=== PATIENT | female | born 1970 | race Caucasian/White ===

== ENCOUNTER → 2017-06-18 | Outpatient (REF) ==
[2017-06-18 09:04] LABS: MEAN CORPUSCULAR HEMOGLOBIN 31.7 pg (27.0-33.0); MEAN CORPUSCULAR HGB CONC 34.4 g/dl (32.0-36.5); MEAN CORPUSCULAR VOLUME 92.1 fl (80.0-96.0); RED CELL DISTRIBUTION WIDTH 11.9 % (11.5-14.5); WHITE BLOOD COUNT 5.1 K/mm3 (4.0-10.0)
[2017-06-18 09:42] LABS: ANION GAP 7 MEQ/L (8-16); BLOOD UREA NITROGEN 19 MG/DL (7-18); CALCIUM LEVEL 8.6 MG/DL (8.5-10.1); CARBON DIOXIDE LEVEL 29 MEQ/L (21-32); CHLORIDE LEVEL 105 MEQ/L (98-107); CHOLESTEROL LEVEL 168 MG/DL (<200); CREATININE FOR GFR 0.61 MG/DL (0.55-1.02); GLOMERULAR FILTRATION RATE > 60.0 (>58); GLUCOSE, FASTING 92 MG/DL (70-105); POTASSIUM SERUM 3.9 MEQ/L (3.5-5.1); SODIUM LEVEL 141 MEQ/L (136-145); TRIGLYCERIDES LEVEL 40 MG/DL (<150)
--- NOTE | 2017-06-18 10:19 | REP ---
Chest x-ray PA and lateral: 06/18/2017. Comparison: 05/06/2016, 06/10/2015. 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 Two views were performed. The lung spicer are well inflated and without infiltrate, effusion, atelectasis or mass. The heart, mediastinal and hilar contours are normal. The airway is intact. Bony thorax shows no acute compression deformity of focal lesion. There is no free air under the diaphragm. Impression: 1. No acute cardiopulmonary disease, stable chest. Signed by Jarrett Koehler MD 06/18/2017 07:04 P
--- NOTE | 2017-06-18 13:22 | REPMRS ---
Patient History The patient states she has not had a clinical breast exam in over a year. No known family history of cancer. Digital Mammo Screening Bilat: June 18, 2017 - Exam #: [id number] Bilateral CC and MLO view(s) were taken. Technologist: Carly Monroe, Technologist Prior study comparison: June 13, 2016, bilateral digital mammo screening bilat performed at [facility]. June 12, 2015, bilateral digital mammo screening bilat performed at [facility]. FINDINGS: The breast tissue is heterogeneously dense. This may lower the sensitivity of mammography. There has been no change in the appearance of the mammogram from the prior studies. There is a moderate amount of residual fibroglandular tissue which is fairly symmetric. There is no interval development of dominant mass, architectural distortion, or clustered microcalcification typical of malignancy. No significant changes when compared with prior studies. ASSESSMENT: BI-RADS/ACR category 1 mammogram. Negative. Recommendation Routine screening mammogram in 1 year (for women over age 40). This mammogram was interpreted with the aid of an FDA-approved computer-aided dectection system. A. Negative x-ray reports should not delay biopsy if a dominant or clinically suspicious mass is present. B. Four to eight percent of cancers are not identified by mammography. C. Adenosis and dense breast may obscure an underlying neoplasm. Electronically Signed By: Jarrett Koehler MD 06/18/17 0218
--- NOTE | 2017-06-19 17:59 | ECGEPIP ---
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 Normal Electronically Signed On 06-19-2017 17:59:04 EDT by Eliseo Toro
== END ==
LOC: M LAB 08:27
PROVIDERS: ATTEND Family Medicine
DX: Z00.8 Encounter for other general examination (principal)

== ENCOUNTER → 2017-10-13 | Outpatient (CLI) | payer BC ==
[2017-10-13 15:35] LABS: BASO % 0.3 % (0.0-1.0); EOS # 0.3 10^3/uL (0.0-0.50); EOS % 4.2 % (0.0-3.0); IMMATURE GRANULOCYTE % 0.3 % (0-0); LYMPH # 1.8 10^3/uL (1.5-4.5); LYMPH % 26.4 % (24.0-44.0); MEAN CORPUSCULAR HEMOGLOBIN 31.3 pg (27.0-33.0); MEAN CORPUSCULAR HGB CONC 33.9 g/dl (32.0-36.5); MEAN CORPUSCULAR VOLUME 92.2 fl (80.0-96.0); MONO # 0.5 10^3/uL (0.0-0.8); MONO % 6.9 % (0.0-5.0); NEUTROPHILS # 4.1 10^3/uL (1.8-7.7); NEUTROPHILS % 61.9 % (36.0-66.0); PLATELET COUNT, AUTOMATED 211 10^3/uL (150-450); RED CELL DISTRIBUTION WIDTH 11.9 % (11.5-14.5); WHITE BLOOD COUNT 6.6 10^3/uL (4.0-10.0)
[2017-10-13 15:45] LABS: ALBUMIN 3.9 GM/DL (3.2-5.2); ALBUMIN/GLOBULIN RATIO 1.34 (1.00-1.93); ALKALINE PHOSPHATASE 50 U/L (45-117); ALT/SGPT 31 U/L (12-78); AMYLASE 39 U/L (25-115); ANION GAP 7 MEQ/L (8-16); AST/SGOT 16 U/L (7-37); BILIRUBIN,TOTAL 0.3 MG/DL (0.2-1.0); BLOOD UREA NITROGEN 12 MG/DL (7-18); CALCIUM LEVEL 8.7 MG/DL (8.5-10.1); CARBON DIOXIDE LEVEL 28 MEQ/L (21-32); CHLORIDE LEVEL 105 MEQ/L (98-107); CREATININE FOR GFR 0.71 MG/DL (0.55-1.02); GLOMERULAR FILTRATION RATE > 60.0 (>58); GLUCOSE, FASTING 73 MG/DL (70-105); SODIUM LEVEL 140 MEQ/L (136-145); TOTAL PROTEIN 6.8 GM/DL (6.4-8.2); URIC ACID 3.5 MG/DL (2.6-6.0)
[2017-10-16 00:06] LABS: Lyme Disease IgG/IgM Antibodie <0.91 ISR (0.00-0.90); Lyme Disease IgM Ab Quantitati <0.80 index (0.00-0.79)
== END ==
LOC: M LAB 08:00
DX: R53.83 Other fatigue (principal); M25.50 Pain in unspecified joint; R10.9 Unspecified abdominal pain
CPT/HCPCS: 82150

== ENCOUNTER → 2018-06-25 | Outpatient (REF) ==
[2018-06-25 16:58] LABS: HEMATOCRIT 40.4 % (36.0-47.0); HEMOGLOBIN 13.5 g/dl (12.0-15.5); MEAN CORPUSCULAR HEMOGLOBIN 31.2 pg (27.0-33.0); MEAN CORPUSCULAR HGB CONC 33.4 g/dl (32.0-36.5); MEAN CORPUSCULAR VOLUME 93.3 fl (80.0-96.0); PLATELET COUNT, AUTOMATED 230 10^3/uL (150-450); RED BLOOD COUNT 4.33 10^6/uL (4.00-5.40); WHITE BLOOD COUNT 7.2 10^3/uL (4.0-10.0)
[2018-06-25 17:23] LABS: ANION GAP 8 MEQ/L (8-16); BLOOD UREA NITROGEN 13 MG/DL (7-18); CALCIUM LEVEL 8.9 MG/DL (8.5-10.1); CARBON DIOXIDE LEVEL 27 MEQ/L (21-32); CHLORIDE LEVEL 106 MEQ/L (98-107); CHOLESTEROL LEVEL 190 MG/DL (<200); CHOLESTEROL RISK RATIO 2.261 (<5); CREATININE FOR GFR 0.69 MG/DL (0.55-1.30); GLOMERULAR FILTRATION RATE > 60.0 (>58); GLUCOSE, FASTING 87 MG/DL (70-100); HDL CHOLESTEROL 84 MG/DL (>40); LDL CHOLESTEROL 94.4 MG/DL (<100); NON-HDL-C 106 MG/DL; POTASSIUM SERUM 4.6 MEQ/L (3.5-5.1); SODIUM LEVEL 141 MEQ/L (136-145); TRIGLYCERIDES LEVEL 58 MG/DL (<150)
== END ==
LOC: M LAB 16:24
DX: Z02.1 Encounter for pre-employment examination (principal)

== ENCOUNTER → 2019-01-17 | Outpatient (REF) | payer BC | LOC: M LAB REF 10:31 | PROVIDERS: ATTEND Physician Assistant | DX: N39.0 Urinary tract infection, site not specified (principal) ==

== ENCOUNTER → 2019-01-21 | Outpatient (CLI) | payer BC ==
--- NOTE | 2019-01-21 21:29 | REP ---
Clinical: Trauma/fall. Technique: Neutral and frog lateral views of the right hip. Findings: No acute fracture dislocation. Skeletal structures, joint spaces and surrounding soft tissues appear normal for age. Impression: No acute fracture or dislocation. Electronically Signed by Darryl Roque MD 01/21/2019 09:21 P
--- NOTE | 2019-01-21 21:29 | REP ---
Clinical: Trauma/fall . Technique: AP, lateral, bilateral oblique, and coned-down views. Findings: There appears to be a nonacute compression deformity involving T12 and correlation is recommended. Alignment and lordosis is maintained. The lumbar vertebral bodies including transverse process and spinous processes are intact and normal. There is no evidence for acute lumbar fracture / compression injury or subluxation. No evidence for spondylolysis or spondylolisthesis. No significant degenerative change is noted. Impression: 1. Nonacute compression deformity involving T12 suspected and correlation is recommended. 2. Normal lumbosacral spine radiograph series. Electronically Signed by Darryl Roque MD 01/21/2019 09:20 P
== END ==
LOC: M RAD 17:48
PROVIDERS: ATTEND Nurse Practitioner Family
DX: M25.551 Pain in right hip (principal); M54.5 Low back pain

== ENCOUNTER → 2019-01-27 | Outpatient (CLI) | payer BC ==
--- NOTE | 2019-01-27 11:55 | REP ---
LEFT HIP AP LATERAL: 01/27/2019. COMPARISON: Right hip 01/21/2019. CLINICAL HISTORY: Left hip pain, trauma after a fall. FINDINGS: There is a tiny rim osteophyte in the femoral head and at the acetabular roof. The joint space width is preserved. There is no fracture through the acetabulum, iliac or ischial bones. SI joint grossly intact. Sacral ala and foramina preserved. Some hypertrophic facet changes at L5-S1. Pubic rami and symphysis pubis intact. There is no evidence of fracture or focal lesion. The femoral head neck, trochanters or proximal shaft. IMPRESSION: 1. Negative for fracture about the left hip. Minor degenerative change, age appropriate. Electronically Signed by Jarrett Koehler MD 01/27/2019 09:50 P
== END ==
LOC: M RAD 11:00
PROVIDERS: ATTEND Nurse Practitioner Family
DX: M25.552 Pain in left hip (principal); M16.12 Unilateral primary osteoarthritis, left hip

== ENCOUNTER → 2019-04-01 | Outpatient (CLI) | payer BC ==
--- NOTE | 2019-04-05 09:59 | DEXA ---
AP SPINE L1 - L4 1.300 0.9 1.2 LT FEMUR TOTAL 1.071 0.5 1.0 LT NECK 1.006 -0.2 0.5 RT FEMUR TOTAL 1.048 0.3 0.8 RT NECK 0.984 -0.4 0.4 TOTAL BODY TOTAL OTHER COMMENTS: Normal bone densitometry of the spine and hips. FOLLOW-UP: Recommendation for the next bone density exam: 5 years. NALINI
== END ==
LOC: M WHC 09:11
PROVIDERS: ATTEND Family Medicine
DX: Z13.820 Encounter for screening for osteoporosis (principal)

== ENCOUNTER → 2019-06-27 | Outpatient (REF) | payer BC | LOC: M LAB REF 09:07 | PROVIDERS: ATTEND Physician Assistant | DX: R30.0 Dysuria (principal) ==

== ENCOUNTER → 2019-07-06 | Outpatient (REF) ==
--- NOTE | 2019-07-06 15:58 | REPMRS ---
Patient History The patient states she has not had a clinical breast exam in over a year. No known family history of cancer. 3D TOMOSYNTHESIS WAS PERFORMED. The Sam Carrion lifetime risk for breast cancer is 12.1%. Digital Mammo Screening Bilat: July 06, 2019 - Exam #: [id number] Bilateral CC and MLO view(s) were taken. Technologist: Carly Monroe, Technologist Prior study comparison: June 25, 2018, bilateral digital mammo screening bilat performed at [facility]. June 18, 2017, bilateral digital mammo screening bilat performed at [facility]. FINDINGS: The breast tissue is heterogeneously dense. This may lower the sensitivity of mammography. There has been no change in the appearance of the mammogram from the prior studies. There is a moderate amount of residual fibroglandular tissue which is fairly symmetric. There is no interval development of dominant mass, areas of architectural distortion, or clustered microcalcification typical of malignancy. Assessment: BI-RADS/ACR category 1 mammogram. Negative Mammogram. Recommendation Routine screening mammogram in 1 year (for women over age 40). This mammogram was interpreted with the aid of an FDA-approved computer-aided dectection system. Electronically Signed By: Cuong Leung MD 07/06/19 [id number]
== END ==
LOC: M RAD 14:30
PROVIDERS: ATTEND Family Medicine
DX: Z12.31 Encounter for screening mammogram for malignant neoplasm of breast (principal)

== ENCOUNTER 2019-12-15 13:45 | Outpatient (RCR) | payer OTHER | END 2019-12-17 | LOC: M PT 13:45 | PROVIDERS: ATTEND Orthopaedic Surgery | DX: M77.01 Medial epicondylitis, right elbow (principal) ==

== ENCOUNTER 2020-01-12 11:45 | Outpatient (RCR) | payer OTHER | END 2020-01-15 | LOC: M PT 11:45 | PROVIDERS: ATTEND Orthopaedic Surgery | DX: Z47.89 Encounter for other orthopedic aftercare (principal); M77.01 Medial epicondylitis, right elbow ==

== ENCOUNTER 2020-02-10 09:30 | Outpatient (RCR) | payer OTHER | END 2020-02-15 | LOC: M PT 09:30 | PROVIDERS: ATTEND Orthopaedic Surgery | DX: Z51.89 Encounter for other specified aftercare (principal); M77.01 Medial epicondylitis, right elbow ==

== ENCOUNTER 2020-02-18 10:16 | Outpatient (RCR) | payer OTHER | END 2020-03-16 | LOC: M PT 10:16 | PROVIDERS: ATTEND Orthopaedic Surgery | DX: M77.01 Medial epicondylitis, right elbow (principal) ==

== ENCOUNTER → 2020-05-12 | Outpatient (CLI) | payer BC ==
--- NOTE | 2020-05-12 16:39 | REP ---
REASON: Atraumatic pain. No recent trauma. No priors for comparison. Lumbar spine series, 01/21/2019 showed a T12 compression abnormality. The T12 compression abnormality seen on the prior lumbar spine examination is unchanged. There is disc space narrowing seen at every level. There is anterior lipping at every level. Vertebral body height and alignment is otherwise within normal limits. The pedicles appear to be intact bilaterally. IMPRESSION: Chronic changes, as described above. Electronically Signed by El Lutz DO 05/12/2020 04:40 P
== END ==
LOC: M WUC 13:14
PROVIDERS: ATTEND Physician Assistant
DX: M51.9 Unspecified thoracic, thoracolumbar and lumbosacral intervertebral disc disorder (principal)

== ENCOUNTER → 2020-05-17 | Outpatient (CLI) | payer BC ==
--- NOTE | 2020-05-17 19:14 | REP ---
MRI thoracic spine: 05/17/2020. Indication: Thoracic axial skeletal pain. Technique: Multiplanar short and long TR sequences of the thoracic spine were obtained without IV Gadolinium imaging. Comparison: None. Findings: There is a chronic anterior T12 compression deformity with minimal loss of craniocaudal height. No worrisome marrow signal is present. There is a small focal area of fatty marrow within the T8 vertebral body. No pathologic cord signal is present. There is a small right paracentral T7/T8 disc protrusion without cord compression. Disc dessication is present throughout. Impression: No significant spinal canal or neural foraminal narrowing throughout the thoracic spine. Electronically Signed by Chad Arias DO 05/17/2020 07:05 P
== END ==
LOC: M RAD 16:23
PROVIDERS: ATTEND Family Medicine
DX: M54.14 Radiculopathy, thoracic region (principal)

== ENCOUNTER → 2020-06-07 | Outpatient (CLI) | payer BC ==
[~2020-06-07] MED LIST: AMPH1CAP16 PO; APPL300T4 PO; CALC1TAB42 PO; COLA100C5 PO; HGH PO; HM C500T3 PO; MULT1TAB7 PO; OMEG12002 PO; RIZA10TA2 PO; SERT25TA85 PO; TUMERIC PO; [UNRECOGNIZED DRUG - OTHER]; [UNRECOGNIZED DRUG - OTHER] PO
== END ==
LOC: M LABSMTC 10:08
PROVIDERS: ATTEND Anesthesiology
DX: Z01.818 Encounter for other preprocedural examination (principal); Z11.59 Encounter for screening for other viral diseases; Z20.828 Contact with and (suspected) exposure to other viral communicable diseases
CPT/HCPCS: C9803; U0003

== ENCOUNTER 2020-06-21 10:30 | Day surgery (SDC) | payer BC, OTHER ==
--- NOTE | 2020-07-26 11:28 | ROOR ---
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 Procedure: Pre-Anesthesia Assessment: - The heart rate, respiratory rate, oxygen saturations, blood pressure, adequacy of pulmonary ventilation, and response to care were monitored throughout the procedure. The Colonoscope was introduced through the anus and advanced to the cecum, identified by appendiceal orifice and ileocecal valve. The colonoscopy was performed without difficulty. The patient tolerated the procedure well. The quality of the bowel preparation was excellent. Findings: The perianal and digital rectal examinations were normal. No other significant abnormalities were identified in a careful examination of the remainder of the colon. The exam was otherwise without abnormality on direct and retroflexion views. Impression: - The examination was otherwise normal on direct and retroflexion views. - No specimens collected. - The exam was otherwise normal to the cecum. Recommendation: - Patient has a contact number available for emergencies. The signs and symptoms of potential delayed complications were discussed with the patient. Return to normal activities tomorrow. Written discharge instructions were provided to the patient. - High fiber diet. - Discharge patient to home. - Continue present medications. - Repeat colonoscopy in 10 years for screening purposes. - Return to referring physician. - The findings and recommendations were discussed with the patient. Adrien Mccain MD Adrien Mccain MD 06/21/2020 11:44:53 AM Number of Addenda: 0 Note Initiated On: 06/21/2020 11:23 AM Estimated Blood Loss: Estimated blood loss: none.
== END 2020-06-21 12:25 | disposition home or self-care (01) ==
LOC: M SDC 10:30
PROVIDERS: ATTEND Internal Medicine Gastroenterology
DX: Z12.11 Encounter for screening for malignant neoplasm of colon (principal); K21.9 Gastro-esophageal reflux disease without esophagitis; Z79.899 Other long term (current) drug therapy

== ENCOUNTER 2020-07-13 11:00 | Outpatient (RCR) | payer BC, OTHER | END 2020-07-17 | disposition home or self-care (01) | LOC: M PT 11:00 | PROVIDERS: ATTEND Physician Assistant | DX: S22.080D Wedge compression fracture of T11-T12 vertebra, subsequent encounter for fracture with routine healing (principal); M51.25 Other intervertebral disc displacement, thoracolumbar region; X58.XXXD Exposure to other specified factors, subsequent encounter; Y92.9 Unspecified place or not applicable ==

== ENCOUNTER → 2020-07-21 | Outpatient (REF) ==
--- NOTE | 2020-07-21 09:16 | REPMRS ---
Patient History The patient states she had a clinical breast exam in 08/2019. No known family history of cancer. No Hormone Replacement Therapy 3D TOMOSYNTHESIS WAS PERFORMED. The Sam Carrion lifetime risk for breast cancer is 11.8%. [facility] Digital Woman Screen Mammo: July 21, 2020 - Exam #: [id number] Bilateral CC and MLO view(s) were taken. Technologist: Cornelia Pina, Technologist Prior study comparison: July 06, 2019, bilateral digital mammo screening bilat, performed at [facility]. June 25, 2018, bilateral digital mammo screening bilat, performed at [facility]. FINDINGS: The breast tissue is heterogeneously dense. This may lower the sensitivity of mammography. There has been no change in the appearance of the mammogram from the prior studies. There is a moderate amount of residual fibroglandular tissue which is fairly symmetric. There is no interval development of dominant mass, areas of architectural distortion, or clustered microcalcification typical of malignancy. Assessment: BI-RADS/ACR category 1 mammogram. Negative Mammogram. Recommendation Routine screening mammogram in 1 year (for women over age 40). This mammogram was interpreted with the aid of an FDA-approved computer-aided dectection system. Electronically Signed By: Cuong Leung MD 07/21/20 0915
== END ==
LOC: M WHC 08:14
PROVIDERS: ATTEND Family Medicine
DX: Z02.89 Encounter for other administrative examinations (principal); Z12.31 Encounter for screening mammogram for malignant neoplasm of breast

== ENCOUNTER 2020-08-15 11:00 | Outpatient (RCR) | payer BC, OTHER | END 2020-08-16 | LOC: M PT 11:00 | PROVIDERS: ATTEND Physician Assistant | DX: S22.080D Wedge compression fracture of T11-T12 vertebra, subsequent encounter for fracture with routine healing (principal); W18.30XD Fall on same level, unspecified, subsequent encounter; Y92.9 Unspecified place or not applicable; M51.25 Other intervertebral disc displacement, thoracolumbar region ==

== ENCOUNTER 2020-09-15 13:00 | Outpatient (RCR) | payer BC, OTHER | END 2020-09-16 | LOC: M PT 13:00 | PROVIDERS: ATTEND Physician Assistant | DX: S22.080D Wedge compression fracture of T11-T12 vertebra, subsequent encounter for fracture with routine healing (principal); M51.25 Other intervertebral disc displacement, thoracolumbar region ==

== ENCOUNTER 2020-09-19 14:12 | Outpatient (RCR) | payer OTHER | END 2020-10-16 | LOC: M PT 14:12 | PROVIDERS: ATTEND Physician Assistant | DX: M51.14 Intervertebral disc disorders with radiculopathy, thoracic region (principal) ==

== ENCOUNTER → 2020-11-16 | Outpatient (RCR) | payer OTHER | LOC: M PT 11-07 13:33 | PROVIDERS: ATTEND Physician Assistant | DX: Z51.89 Encounter for other specified aftercare (principal); M51.25 Other intervertebral disc displacement, thoracolumbar region ==

== ENCOUNTER 2020-12-15 11:00 | Outpatient (RCR) | payer OTHER | END 2020-12-17 | LOC: M PT 11:00 | PROVIDERS: ATTEND Physician Assistant | DX: Z51.89 Encounter for other specified aftercare (principal); M51.25 Other intervertebral disc displacement, thoracolumbar region ==

== ENCOUNTER 2021-02-08 08:00 | Outpatient (RCR) | payer OTHER | END 2021-02-14 | LOC: M PT 08:00 | PROVIDERS: ATTEND Physician Assistant | DX: S22.080D Wedge compression fracture of T11-T12 vertebra, subsequent encounter for fracture with routine healing (principal) ==

== ENCOUNTER 2021-03-15 13:00 | Outpatient (RCR) | payer OTHER | END 2021-03-16 | LOC: M PT 13:00 | PROVIDERS: ATTEND Physician Assistant | DX: M51.26 Other intervertebral disc displacement, lumbar region (principal); M51.25 Other intervertebral disc displacement, thoracolumbar region ==

== ENCOUNTER 2021-03-22 14:30 | Outpatient (RCR) | payer OTHER ==
[~2021-03-22 14:30] MED LIST changes: -HM C500T3 PO; +HM C500T4 PO
== END 2021-04-16 ==
LOC: M PT 14:30
PROVIDERS: ATTEND Physician Assistant
DX: M51.34 Other intervertebral disc degeneration, thoracic region (principal)

== ENCOUNTER 2021-05-15 14:30 | Outpatient (RCR) | payer OTHER | END 2021-05-16 | LOC: M PT 14:30 | PROVIDERS: ATTEND Physician Assistant | DX: M51.36 Other intervertebral disc degeneration, lumbar region (principal) ==

== ENCOUNTER 2021-05-18 14:30 | Outpatient (RCR) | payer OTHER | END 2021-06-16 | LOC: M PT 14:30 | PROVIDERS: ATTEND Physician Assistant | DX: M51.24 Other intervertebral disc displacement, thoracic region (principal) ==

== ENCOUNTER → 2021-05-29 | Outpatient (REF) | payer BC, OTHER | LOC: M LAB REF 19:20 | PROVIDERS: ATTEND Physician Assistant | DX: R30.0 Dysuria (principal) ==

== ENCOUNTER → 2021-06-07 | Outpatient (CLI) | payer BC ==
[2021-06-07 12:24] LABS: BASO % 0.5 % (0.0-1.0); EOS # 0.2 10^3/uL (0.0-0.5); EOS % 3.5 % (0.0-3.0); HEMATOCRIT 41.5 % (36.0-47.0); HEMOGLOBIN 13.5 g/dl (12.0-15.5); LYMPH # 1.4 10^3/uL (1.5-5.0); LYMPH % 25.4 % (24.0-44.0); MEAN CORPUSCULAR HEMOGLOBIN 30.6 pg (27.0-33.0); MEAN CORPUSCULAR HGB CONC 32.5 g/dl (32.0-36.5); MEAN CORPUSCULAR VOLUME 94.1 fl (80.0-96.0); MONO # 0.3 10^3/uL (0.0-0.8); MONO % 5.7 % (2.0-8.0); NEUTROPHILS # 3.7 10^3/uL (1.5-8.5); NEUTROPHILS % 64.7 % (36.0-66.0); PLATELET COUNT, AUTOMATED 217 10^3/uL (150-450); RED BLOOD COUNT 4.41 10^6/uL (4.00-5.40); WHITE BLOOD COUNT 5.6 10^3/uL (4.0-10.0)
[2021-06-07 12:56] LABS: ALBUMIN 3.7 GM/DL (3.2-5.2); ALT/SGPT 28 U/L (12-78); BILIRUBIN,TOTAL 0.5 MG/DL (0.2-1.0); BLOOD UREA NITROGEN 9 MG/DL (7-18); CALCIUM LEVEL 8.9 MG/DL (8.5-10.1); CARBON DIOXIDE LEVEL 29 MEQ/L (21-32); CHLORIDE LEVEL 106 MEQ/L (98-107); CHOLESTEROL LEVEL 196 MG/DL (<200); CHOLESTEROL RISK RATIO 2.684 (<5); GLOMERULAR FILTRATION RATE > 60.0 (>51); GLUCOSE, FASTING 83 MG/DL (70-100); HDL CHOLESTEROL 73 MG/DL (>40); LDL CHOLESTEROL 111 MG/DL (<100); NON-HDL-C 123 MG/DL; POTASSIUM SERUM 4.5 MEQ/L (3.5-5.1); SODIUM LEVEL 140 MEQ/L (136-145); TOTAL PROTEIN 6.8 GM/DL (6.4-8.2); TRIGLYCERIDES LEVEL 61 MG/DL (<150)
== END ==
LOC: M LAB 11:19
PROVIDERS: ATTEND Family Medicine
DX: Z00.00 Encounter for general adult medical examination without abnormal findings (principal)

== ENCOUNTER → 2021-07-27 | Outpatient (CLI) | payer BC ==
[~2021-07-27] MED LIST changes: +GASTROGRAFIN SOLUTION 30ML (Q9963) As Ordered ONE; +ISOVUE-370 76% 100ML VIAL As Ordered ONE
--- NOTE | 2021-07-27 15:33 | REP ---
INDICATION: VENTRAL HERNIA WITHOUT OBST OR GANGRENE. COMPARISON: Comparison is made with prior CT chest images from July 30, 2015 and T-spine radiographs from May 06 04/18/2020. TECHNIQUE: Oral contrast is administered. Pre contrast CT study of the abdomen and postcontrast abdomen and pelvis CT acquisition is acquired following the intravenous injection of 100 mL of Isovue 370. Coronal and sagittal MPR images are provided. FINDINGS: Preliminary digital work and family life consultant radiograph is unremarkable. The lung bases are clear. The liver and the spleen are normal in size homogeneous in texture. Normal adrenal glands are observed bilaterally. No abnormality is noted in the pancreas or the gallbladder. Kidneys enhance symmetrically and are morphologically intact. No retroperitoneal mass or adenopathy is observed. No vascular abnormality is seen. Normal caliber aorta. Pelvic CT images show no evidence of pelvic mass adenopathy or cyst. Uterus is surgically absent. Urinary bladder is unremarkable. No abdominal wall defect is seen. Small and large bowel loops are unremarkable. A short normal appendix is seen. There is a developmental deformity of the vertebral body at the T12 level with a partial cleft in the anterior aspect of the vertebral body. There is loss of vertebral body height centrally at this level. This is unchanged from comparison radiograph May 12, 2020 and is visible on July 30, [address] images. No acute bony abnormality is appreciated. Sacrum and SI joints are intact. IMPRESSION: No acute abdominal or pelvic abnormality. Uterus surgically absent. Developmental deformity of the T12 vertebral body anteriorly unchanged. Otherwise no acute abnormality. <Electronically signed by Denny Coleman > 07/27/21 [id number]
== END ==
LOC: M RAD 13:23
PROVIDERS: ATTEND Plastic Surgery Surgery of the Hand
DX: K43.9 Ventral hernia without obstruction or gangrene (principal); M54.07 Panniculitis affecting regions of neck and back, lumbosacral region
CPT/HCPCS: 74178; Q9963; Q9967

== ENCOUNTER → 2021-07-27 | Outpatient (REF) ==
[~2021-07-27] MED LIST changes: -GASTROGRAFIN SOLUTION 30ML (Q9963) As Ordered ONE; -ISOVUE-370 76% 100ML VIAL As Ordered ONE
--- NOTE | 2021-07-27 11:27 | REPMRS ---
Patient History The patient states she has not had a clinical breast exam in over a year. No known family history of cancer. No Hormone Replacement Therapy Digital Woman Screen Mammo: July 27, 2021 - Exam #: [id number] Bilateral CC and MLO view(s) were taken. Technologist: Lynnette Ac, Technologist Prior study comparison: July 21, 2020, bilateral digital woman screen mammo performed at [facility]. July 06, 2019, bilateral digital mammo screening bilat, performed at [facility]. FINDINGS: The breast tissue is heterogeneously dense. This may lower the sensitivity of mammography. Screening. Digital screening (2D) mammography was performed bilaterally in the CC and MLO projections. Additionally, breast tomosynthesis (3D mammography) was performed bilaterally in the CC and MLO projections. Todays exam was compared to the prior exam/exams. By history, the patient has no complaints of a palpable breast abnormality or other significant breast complaints. The breasts are unchanged in size and shape. Once again, dense heterogenous fibroglandular elements are seen bilaterally in a stable appearing pattern but to such a degree that the sensitivity of the mammogram in detecting cancer is decreased.There are no kiera-soft tissue densities or spiculated masses. There is no internal architectural distortion. Once again, stable benign appearing calcifications are seen.There are no suspicious kiera-calcific clusters. Skin thickening or nipple retraction is not present. IMPRESSION: BI-RADS Category 2- Benign Findings. There is no evidence of malignant alteration of the breasts. Followup examination recommended in one year. The Volpara volumetric breast density category is C, the breasts are heterogenously dense which may obscure small masses. This mammogram was read with the assistance of [facility] 72798.com,an FDA approved computer aided detection system for mammography. The lifetime Tyrer-Cuzick score is 11.6% Due to the density of the breasts or Tyrer Cuzick score of 20% or greater, MRI/whole breast screening ultrasound is warranted. Negative x-ray reports should not delay surgical consultation if a dominant or clinically suspicious mass is present. Not all breast cancers can be identified by mammography. Therefore, we recommend that you continue to perform regular breast self-examination and physical examination and then promptly contact your physician of any concerns or changes. Adenosis and dense breasts may obscure an underlying neoplasm. Assessment: BI-RADS/ACR category 2 mammogram. Benign Findings. Recommendation Routine screening mammogram of both breasts in 1 year. Electronically Signed By: El Lutz DO 07/27/21 1128
== END ==
LOC: M WHC 10:01
PROVIDERS: ATTEND Family Medicine
DX: Z00.00 Encounter for general adult medical examination without abnormal findings (principal); Z12.31 Encounter for screening mammogram for malignant neoplasm of breast

== ENCOUNTER → 2021-08-08 | Outpatient (REF) ==
[2021-08-08 09:07] LABS: HEMATOCRIT 42.3 % (36.0-47.0); HEMOGLOBIN 14.2 g/dl (12.0-15.5); MEAN CORPUSCULAR HEMOGLOBIN 30.9 pg (27.0-33.0); MEAN CORPUSCULAR HGB CONC 33.6 g/dl (32.0-36.5); PLATELET COUNT, AUTOMATED 203 10^3/uL (150-450); WHITE BLOOD COUNT 5.6 10^3/uL (4.0-10.0)
--- NOTE | 2021-08-08 09:12 | REP ---
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 TECHNIQUE: PA/Lateral FINDINGS: Lungs: Clear, no infiltrate. Heart: Normal in size. Mediastinum: Mediastinal silhouette unremarkable. Pleural angles: Unremarkable.. Bones and soft tissues: There is mild stable compression deformity of T12. IMPRESSION: No acute pulmonary disease. <Electronically signed by Cuong Leung > 08/08/21 0908
[2021-08-08 09:28] LABS: BLOOD UREA NITROGEN 21 MG/DL (7-18); CALCIUM LEVEL 9.2 MG/DL (8.5-10.1); CARBON DIOXIDE LEVEL 31 MEQ/L (21-32); CHLORIDE LEVEL 105 MEQ/L (98-107); CHOLESTEROL LEVEL 218 MG/DL (<200); CREATININE FOR GFR 0.67 MG/DL (0.55-1.30); GLOMERULAR FILTRATION RATE > 60.0 (>51); GLUCOSE, FASTING 95 MG/DL (70-100); HDL CHOLESTEROL 71 MG/DL (>40); LDL CHOLESTEROL 127 MG/DL (<100); NON-HDL-C 147 MG/DL; POTASSIUM SERUM 4.6 MEQ/L (3.5-5.1); SODIUM LEVEL 139 MEQ/L (136-145); TRIGLYCERIDES LEVEL 102 MG/DL (<150)
[2021-08-08 10:39] LABS: HEPATITIS B SURFACE ANTIBODY POSITIVE (POSITIVE)
--- NOTE | 2021-08-08 11:04 | ECGEPIP ---
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
== END ==
LOC: M LAB 08:28
PROVIDERS: ATTEND Family Medicine
DX: Z00.00 Encounter for general adult medical examination without abnormal findings (principal)

== ENCOUNTER → 2021-08-31 | Outpatient (REF) | LOC: M LABSMTC 10:20 | PROVIDERS: ATTEND Family Medicine | DX: Z11.52 Encounter for screening for COVID-19 (principal) ==

== ENCOUNTER → 2021-09-03 | Outpatient (REF) | LOC: M LABSMTC 10:17 | PROVIDERS: ATTEND Family Medicine | DX: Z11.52 Encounter for screening for COVID-19 (principal) ==

== ENCOUNTER 2021-09-26 13:23 | Outpatient (CLI) | payer BC ==
[~2021-09-26] VITALS: Ht 165.1 cm; Wt 68.0 kg
[~2021-09-26 13:23] MED LIST changes: +ALBUTEROL 90 MCG/ACT 8GM HFA INHALER INH PRN; +ALBUTEROL SULFATE 2.5 MG/0.5 ML INH NEB SOLN INH PRN; +EPINEPHrine INJ 1 MG/ML 1ML AMP IM PRN; +NS 1,000 ML IV SCH; +diphenhydrAMINE 50MG/ML VIAL (J1200) IV PRN; +methylPREDNISolone 125MG 2ML VIAL IV PRN
[2021-09-26] MEDS ORDERED: diphenhydrAMINE 25MG CAP PO ONE (14:10)
[2021-09-26] MEDS ORDERED: CASIRIVIMAB (REGN10933) 600 MG, IMDEVIMAB (REGN10987) 600 MG in NS 250 ML IV ONE (14:10)
[2021-09-26] MEDS ORDERED: ACETAMINOPHEN TAB 650MG DOSE (2X325MG) PO ONE (14:10)
[2021-09-26 14:20] VITALS: BP 132/76
[2021-09-26 14:50] VITALS: BP 102/67
[2021-09-26 15:20] VITALS: BP 128/63
[2021-09-26 16:20] VITALS: BP 114/70
== END 2021-09-26 16:20 | disposition home or self-care (01) ==
LOC: M OPCLI4PR 13:23
PROVIDERS: ATTEND Internal Medicine
DX: U07.1 COVID-19 (principal); Z91.040 Latex allergy status

== ENCOUNTER → 2021-09-26 | Outpatient (REF) | LOC: M EMP 08:09 | PROVIDERS: ATTEND Family Medicine | DX: Z11.52 Encounter for screening for COVID-19 (principal) ==

== ENCOUNTER → 2021-10-08 | Outpatient (CLI) | payer OTHER ==
[~2021-10-08] MED LIST changes: -ALBUTEROL 90 MCG/ACT 8GM HFA INHALER INH PRN; -ALBUTEROL SULFATE 2.5 MG/0.5 ML INH NEB SOLN INH PRN; -EPINEPHrine INJ 1 MG/ML 1ML AMP IM PRN; -NS 1,000 ML IV SCH; -diphenhydrAMINE 50MG/ML VIAL (J1200) IV PRN; -methylPREDNISolone 125MG 2ML VIAL IV PRN
--- NOTE | 2021-10-09 11:31 | REP ---
INDICATION: STRAIN OF MUSCLE AND TENDON OF BACK WALL THORAX. COMPARISON: 05/17/2020. TECHNIQUE: Multiple sequences in the axial and sagittal planes. FINDINGS: Incidental note is made of mild diffuse disc bulging at C5-6 and C6-7. Chronic wedge deformity is noted of the T12 vertebral body, unchanged. There is a small hemangioma in the T8 vertebral body, unchanged. There is diffuse loss of water signal and disc degeneration again noted. There is mild scattered degenerative signal along the vertebral body endplates. No bone lesions are seen. There is no acute compression deformity. No abnormal signal is seen in the thoracic spinal cord. Minimal disc bulging at T7-8 and T8-9 is stable. There is mild left paracentral disc protrusion at T9-10 which is stable. There is no spinal stenosis or foraminal narrowing at any level. IMPRESSION: Stable findings compared to 05/17/2020, as discussed in detail above. <Electronically signed by Cuong Leung > 10/09/21 1129
--- NOTE | 2021-10-09 13:35 | REP ---
INDICATION: STRAIN OF MUSCLE AND TENDON OF BACK WALL THORAX. COMPARISON: Radiographs 01/21/2019. TECHNIQUE: Multiple sequences in the sagittal and axial planes. FINDINGS: There is minimal retrolisthesis of L5 on S1 unchanged since the prior radiographs. There is no new compression fracture or malalignment. There is loss of water signal and disc degeneration at L4-5 and L5-S1. Hemangioma is noted of L4 vertebral body. The conus terminates at T12-L1. At L1-2 and L2-3 there is no significant disc bulging or herniation. There is no spinal stenosis or foraminal narrowing. At L3-4 there is mild diffuse disc bulging. There is no foraminal narrowing or spinal stenosis. At L4-5 there is mild diffuse disc bulging. There are hypertrophic changes at the posterior facet joints with mild fluid in both facet joints. There is hypertrophy of the ligamentum flavum. There is borderline central canal stenosis. There is mild right-sided foraminal narrowing. At L5-S1 there is mild diffuse disc bulging. There are mild hypertrophic changes at the posterior facets. There is no spinal stenosis. There is very mild left foraminal stenosis. IMPRESSION: Degenerative disc changes L4-5 and L5-S1 as discussed in detail above. At L4-5 there is borderline central canal stenosis. <Electronically signed by Cuong Leung > 10/09/21 0674
== END ==
LOC: M RAD 17:29
PROVIDERS: ATTEND Physician Assistant
DX: R93.7 Abnormal findings on diagnostic imaging of other parts of musculoskeletal system (principal); S29.012D Strain of muscle and tendon of back wall of thorax, subsequent encounter

== ENCOUNTER → 2021-10-23 | Outpatient (CLI) | payer BC ==
[2021-10-23 17:50] LABS: ESTRADIOL 36.9 PG/ML; FOLLICLE STIMULATING HORMONE 29.8 mIU/mL; LUTEINIZING HORMONE 20.6 mIU/mL; PROGESTERONE 0.31 NG/ML
== END ==
LOC: M LAB 16:38
PROVIDERS: ATTEND Obstetrics & Gynecology
DX: N95.1 Menopausal and female climacteric states (principal)

== ENCOUNTER → 2022-04-18 | Outpatient (CLI) | payer BC ==
[2022-04-18 16:50] LABS: HEMATOCRIT 39.1 % (36.0-47.0); MEAN CORPUSCULAR HEMOGLOBIN 30.6 pg (27.0-33.0); MEAN CORPUSCULAR HGB CONC 33.2 g/dl (32.0-36.5); PLATELET COUNT, AUTOMATED 204 10^3/uL (150-450); RED BLOOD COUNT 4.25 10^6/uL (4.00-5.40)
== END ==
LOC: M LAB 15:19
DX: Z01.810 Encounter for preprocedural cardiovascular examination (principal)

== ENCOUNTER → 2022-08-15 | Outpatient (REF) | LOC: M WHC 14:48 | PROVIDERS: ATTEND Family Medicine | DX: Z12.31 Encounter for screening mammogram for malignant neoplasm of breast (principal) ==

== ENCOUNTER → 2023-02-27 | Outpatient (REF) | payer BC ==
[2023-02-27 17:36] LABS: C REACTIVE PROTEIN QUANTITATIV < 0.40 MG/DL (<1.0)
[2023-02-27 17:38] LABS: RHEUMATOID FACTOR QUANT 3.8 IU/ML (<14)
== END ==
LOC: M LAB REF 16:26
PROVIDERS: ATTEND Family Medicine
DX: R53.83 Other fatigue (principal); M25.50 Pain in unspecified joint

== ENCOUNTER → 2023-04-09 | Outpatient (CLI) | payer BC | LOC: M RAD 16:13 | PROVIDERS: ATTEND Orthopaedic Surgery | DX: M20.21 Hallux rigidus, right foot (principal) ==

== ENCOUNTER → 2023-06-18 | Outpatient (CLI) | payer BC ==
[2023-06-18 18:47] LABS: ESTRADIOL 62.9 PG/ML; FOLLICLE STIMULATING HORMONE 32.3 mIU/ML; LUTEINIZING HORMONE 32.8 mIU/ML
[2023-06-19 07:29] LABS: PROGESTERONE < 0.21 NG/ML
== END ==
LOC: M LAB 17:44
PROVIDERS: ATTEND Obstetrics & Gynecology
DX: N95.1 Menopausal and female climacteric states (principal)

== ENCOUNTER → 2023-08-21 | Outpatient (CLI) | payer BC | LOC: M WHC 07:01 | PROVIDERS: ATTEND Family Medicine | DX: Z12.31 Encounter for screening mammogram for malignant neoplasm of breast (principal) ==

== ENCOUNTER → 2023-08-28 | Outpatient (CLI) | payer BC | LOC: M WHC 07:47 | PROVIDERS: ATTEND Family Medicine | DX: Z12.31 Encounter for screening mammogram for malignant neoplasm of breast (principal); Z85.3 Personal history of malignant neoplasm of breast ==

== ENCOUNTER → 2023-10-06 | Outpatient (REF) | LOC: M EMP 09:34 | PROVIDERS: ATTEND Family Medicine | DX: Z11.52 Encounter for screening for COVID-19 (principal) ==

== ENCOUNTER → 2023-12-17 | Outpatient (CLI) | payer OTHER | LOC: M PLAIMG 06:42 | PROVIDERS: ATTEND Physician Assistant Surgical | DX: M47.892 Other spondylosis, cervical region (principal) ==

== ENCOUNTER 2023-12-29 07:48 | Emergency (ER) | payer BC, OTHER ==
[~2023-12-29] VITALS: Ht 167.6 cm; Wt 68.2 kg
[2023-12-29 07:49] VITALS: TEMP 98.2
[2023-12-29] MEDS: CEPHALEXIN 500 MG CAP PO ONE (08:20)
[2023-12-29] MEDS ORDERED: CEPH500C PO (08:22)
[2023-12-29] MEDS: BOOSTRIX VACCINE (TETANUS/DIPHTH/ACEL. PERTUSSIS) 0.5ML SYR IM ONE (08:27)
[2023-12-29 08:50] VITALS: BP 113/75; O2SAT 99
== END 2023-12-29 08:52 | disposition home or self-care (01) ==
LOC: M ED 07:48
DX: S61.231A Puncture wound without foreign body of left index finger without damage to nail, initial encounter (principal); W26.8XXA Contact with other sharp object(s), not elsewhere classified, initial encounter; Y92.009 Unspecified place in unspecified non-institutional (private) residence as the place of occurrence of the external cause; Y93.9 Activity, unspecified; Y99.9 Unspecified external cause status; J30.81 Allergic rhinitis due to animal (cat) (dog) hair and dander; Z79.899 Other long term (current) drug therapy; Z91.040 Latex allergy status; Z91.013 Allergy to seafood

== ENCOUNTER → 2024-03-05 | Outpatient (CLI) | payer OTHER ==
[~2024-03-05] MED LIST changes: +CEPH500C PO; +ISOVUE-300 61% 100ML VIAL As Ordered ONE; +LIDOCAINE 1% MDV 20ML VIAL As Ordered ONE; +methylPREDNISolone SUSP 40MG/ML 1ML VIAL (DEPO MEDROL) As Ordered ONE
== END ==
LOC: M RAD 14:05
PROVIDERS: ATTEND Physician Assistant Surgical
DX: M75.41 Impingement syndrome of right shoulder (principal); M50.30 Other cervical disc degeneration, unspecified cervical region; M47.892 Other spondylosis, cervical region
CPT/HCPCS: 20610; 77002; J1010; Q9967

== ENCOUNTER → 2024-09-17 | Outpatient (REF) | payer BC, OTHER ==
[~2024-09-17] MED LIST changes: -ISOVUE-300 61% 100ML VIAL As Ordered ONE; -LIDOCAINE 1% MDV 20ML VIAL As Ordered ONE; -methylPREDNISolone SUSP 40MG/ML 1ML VIAL (DEPO MEDROL) As Ordered ONE
== END ==
LOC: M WHC 12:44 → M CLINICFL 12:48 → M WHC 12:48 → EDSTATUS 13:00
PROVIDERS: ATTEND Family Medicine
DX: Z12.31 Encounter for screening mammogram for malignant neoplasm of breast (principal)

== ENCOUNTER → 2025-03-16 | Outpatient (RCR) | payer BC, OTHER | LOC: M PT 03-04 13:25 | PROVIDERS: ATTEND Physician Assistant Surgical | DX: M75.01 Adhesive capsulitis of right shoulder (principal); M75.41 Impingement syndrome of right shoulder; M47.892 Other spondylosis, cervical region ==

== ENCOUNTER → 2025-06-16 | Outpatient (RCR) | payer OTHER | LOC: M PT 05-18 08:07 | PROVIDERS: ATTEND Physician Assistant Surgical | DX: M75.01 Adhesive capsulitis of right shoulder (principal) ==

== ENCOUNTER → 2025-09-22 | Outpatient (REF) ==
[~2025-09-22] MED LIST changes: +CRAN500T4 PO; -HM C500T4 PO
== END ==
LOC: EDSTATUS 07:00 → M WHC 07:16
PROVIDERS: ATTEND Family Medicine
DX: Z12.31 Encounter for screening mammogram for malignant neoplasm of breast (principal); R92.323 Mammographic fibroglandular density, bilateral breasts